=== PATIENT | male | born 1970 | race Caucasian/White ===

== ENCOUNTER → 2019-02-09 09:31 | Day surgery (SDC) | payer OTHER ==
[~2019-02-09 09:31] MED LIST: Bacitracin OINTMENT* 0.5% 0.5 oz TUBE ONE; Buffered Lidocaine 1% SYRIN* 1 ML/SYRINGE INTRADERM ONE; Dexamethasone IV* 4 MG/ML 1 ML (4 MG) ONE; DiMENhydriNATE IV* 50 MG/ML VIAL IV PUSH PRN; EPINEPHRINE 1 MG/ML 1 ML VIAL ONE; Gelfoam 12-7 ADSORBABL SPONGE* 1 EA SPONGE ONE; Lactated Ringers 1000 ML Bag* 1,000 ML IV SCH; Lidocaine 1% w EPI 1:100,000* MDV 20 ML VIAL ONE; Lidocaine 2% PF * 5 ML VIAL ONE; Metoclopramide IV* 5 MG/ML 2 ML VIAL ONE; Midazolam* 1 MG/ML 2 ML VIAL (2 MG) ONE; Naloxone* 0.4 MG/ML 1 ML VIAL IV PRN; Ofloxacin 0.3% (Ear Drop)* 5 ml BTL ONE; Ondansetron INJ* 2 MG/ML VIAL ONE; Propofol* 10 MG/ML 20 ML BTL ONE; Rocuronium* 10 MG/ML VIAL ONE; Sugammadex * 200 MG/2 ML VIAL IV PUSH ONE; fentaNYL* 50 MCG/ML 2 ML VIAL (100 MCG VIAL) ONE; oxyCODONE TAB* 5 MG TAB PO PRN
[2019-02-09] MEDS: fentaNYL* 50 MCG/ML 2 ML VIAL (100 MCG VIAL) IV PRN ×2 (14:42→14:47)
--- NOTE | 2019-02-09 14:57 | OP ---
DATE OF OPERATION: 02/09/19 - [facility] DATE OF : 66 SURGEON: Tobin Meyer MD ASSISTANTS: None. ANESTHESIA: General. PRE-OP DIAGNOSIS: Chronic otitis media with central perforation of the left ear. POST-OP DIAGNOSIS: Chronic otitis media with central perforation of the left ear. OPERATIVE PROCEDURE: Left tympanoplasty. ESTIMATED BLOOD LOSS: Less than 20 cc. SPECIMENS: None. FINDINGS: Large central perforation involving the posterior and inferior quadrants of the left tympanic membrane. INDICATION: This is a 48-year-old male who has had decades of chronic drainage from the left ear. He has a chronic perforation, which was thought to likely have been traumatic many years ago. We have controlled him with fairly regular use of topical drops. Decision was made to proceed with tympanoplasty in efforts to create a safe dryer. DESCRIPTION OF PROCEDURE: He was brought to the operating room. General anesthesia was induced and oral endotracheal tube was placed. The patient was prepped with Betadine and draped sterilely. Approximately 3 cc of 1% lidocaine with 1:100,000 epinephrine was infiltrated into the postauricular sulcus. The ear was then evacuated with Betadine and irrigated with saline. A 4-quadrant canal injection was then made with additional 1% lidocaine with 1:100,000 epinephrine. An angled Bowers blade was used to make a curvilinear incision from 12 o'clock to 6 o'clock, approximately 8 mm lateral to the tympanic annulus. A piece of Gelfoam was placed against this incision in the ear canal. Attention was then turned post auricularly. A #15 blade and subsequently a Bovie cautery was used to make a post auricular incision down to the level of the mastoid periosteum and temporalis fascia. A temporalis fascia graft was then harvested, set aside to press. The mastoid periosteum was then incised. It brought forward incontinuity with the posterior canal skin until the previously made end oral incision was reached. The ear was then held forward with a Weitlaner retractor. A round knife was then used to elevate tympanomeatal flap. The chorda tympani nerve was identified and protected. The middle ear mucosa was slightly inflamed and there was a mucoid fluid here, which was suctioned free. Middle ear was irrigated out with saline. The malleus was somewhat foreshortened, although incudo-stapedial joint appeared to be intact. The middle ear space was then filled with Floxin soaked Gelfoam. The graft, which had been flattened and dried, was then trimmed, placed on top of the bed of Gelfoam underneath the tympanomeatal flap. The flap was then laid back down. The graft was tucked down to the edge of the perforation. Additional small pieces of Floxin soaked Gelfoam were then placed lateral to the tympanomeatal flap to secure the flap. The mastoid periosteum was then closed with 3-0 Vicryl. The postauricular incision was closed with 4-0 Vicryl and the ear was finally packed with additional Floxin soaked Gelfoam. A Payette dressing was applied. The patient was then returned to the care of the anesthesiologist, extubated, and delivered to the PACU in stable condition. [id number]/[facility] #: [id number] JACQUELINE
[2019-02-09 15:18] VITALS: BP 147/88
== END | disposition home or self-care (01) ==
LOC: OR 09:31
PROVIDERS: ATTEND Otolaryngology
DX: H72.92 Unspecified perforation of tympanic membrane, left ear (principal); H66.92 Otitis media, unspecified, left ear; F17.210 Nicotine dependence, cigarettes, uncomplicated; I45.10 Unspecified right bundle-branch block
CPT/HCPCS: A9270-GY; J1100; J2250; J2405; J2704; J2765; J3010